=== PATIENT | male | born 1965 | race Two or more races ===

== ENCOUNTER 2024-09-14 11:19 | Emergency (ER) | payer OTHER ==
[~2024-09-14] VITALS: Ht 167.6 cm; Wt 94.3 kg
== END 2024-09-14 19:17 | disposition home or self-care (01) ==
LOC: ER 11:19
DX: S00.81XA Abrasion of other part of head, initial encounter (principal); W18.39XA Other fall on same level, initial encounter; Y93.89 Activity, other specified; Y92.89 Other specified places as the place of occurrence of the external cause; Y99.9 Unspecified external cause status; E11.9 Type 2 diabetes mellitus without complications; G20.A1 Parkinson's disease without dyskinesia, without mention of fluctuations